=== PATIENT | female | born 1955 | race Caucasian/White ===

== ENCOUNTER 2020-09-22 08:36 | Outpatient (CLI) | payer MEDICARE ==
[2020-09-22] MEDS ORDERED: EPINEPHrine 1 MG/ML AMP ONE (09:15)
[2020-09-22] MEDS ORDERED: Lidocaine 1% PF 10 ML AMP ONE (09:15)
[2020-09-22] MEDS ORDERED: Iopamidol 300 61% 50 ML VIAL FS ONE (09:15)
--- NOTE | 2020-09-22 10:24 | RAD ---
Exam: Right shoulder arthrogram HISTORY: Traumatic change of the left rotator cuff. Exposure: 0.9 minutes, 77.5 mcg/sq m FINDINGS: 3 view music internship radiograph the left shoulder does not demonstrate any definite fracture or dis location. Normal joint space is preserved Successful left shoulder arthrogram. A total of 13 cc of the contrast admixture was administered. TECHNIQUE: Consent obtained to perform a left shoulder arthrogram with fluoroscopic guidance. Left sh oulder was prepped and draped in a sterile fashion. 1% lidocaine, buffered with sodium bicarbonate was used for local anesthesia. Under fluoroscopic guidance, 22-gauge spinal needle was advanced in th e left shoulder joint space. A total of 13 cc of the contrast admixture was administered into the joint space. Patient tolerated the procedure well. No immediate or postprocedure complications. IMPRESSION: Successful left shoulder arthrogram with fluoroscopic guidance.
--- NOTE | 2020-09-22 13:33 | CT ---
POST ARTHROGRAM CT OF LEFT SHOULDER PERFORMED WITH CONTRAST: Date: 09/22/2020 HISTORY: Traumatic tear of left rotator cuff. Shoulder pain. FINDINGS: The visualized lungs are clear of any infiltrates. Calcified granuloma is seen in the left upper lobe . Contrast injected by Dr. Huston with opacification of the joint space. The supra and infraspinatus ten dons both appear intact. I do not appreciate any evidence for any partial tear. No delamination. Cont rast adjacent to the subscapularis muscle and tendon is probable all iatrogenic. No definitive labral abnormalities. Biceps tendon is in normal position within the bicipital groove. IMPRESSION: No evidence of rotator cuff tear. POS: Rosy
== END 2020-09-22 08:37 | disposition home or self-care (01) ==
LOC: RAD 08:36
PROVIDERS: ATTEND Orthopaedic Surgery Hand Surgery
DX: S46.012A Strain of muscle(s) and tendon(s) of the rotator cuff of left shoulder, initial encounter (principal)
CPT/HCPCS: 23350; J0171; J2001; Q9967

== ENCOUNTER 2020-10-27 07:51 | Outpatient (CLI) | payer MEDICARE ==
[2020-10-27 11:30] LABS: Bilirubin Neg (Negative); Blood, Urine 150 (Negative); Clarity Cloudy (Clear); Glucose, Urine (Dipstick) Normal (Negative); Ketone, Urine Negative (Negative); Leukocyte 500 (Negative); Nitrite Positive (Negative); Protein, Urine (Dipstick) 100 mg/dl (Neg-Trace); Specific Gravity, Urine 1.015 (1.002-1.036); Urobilinogen Normal mg/dL (Less than 2)
[2020-10-27 11:34] LABS: #Basophils 0.1 10x3/uL (0.0-0.2); #Eosinphils 0.2 10x3/uL (0.0-0.5); #Monocytes 1.1 10x3/uL (0.0-1.1); #Neutrophils 6.9 10x3/uL (1.5-8.4); %Basophils 0.5 % (0.0-2.0); %Eosinophils 1.5 % (0.0-6.0); %Lymphocytes 22.6 % (18.0-47.0); %Monocytes 10.2 % (0.0-10.0); %Neutrophils 64.6 % (40.0-75.0); Hemoglobin 12.5 g/dL (12.0-16.0); Mean Corpuscular Hemoglobin 26.7 PG (27.0-33.0); Mean Corpuscular Volume 83.4 fl (80.0-100.0); Mean Platelet Volume 11.6 fl (7.4-10.4); Platelet Count 191 10x3/uL (130-400); RBC Distribution Width 14.6 % (11.5-14.5); Red Blood Cell (RBC) Count 4.69 10x6/uL (3.90-5.20); White Blood Cell (WBC) Count 10.7 10x3/uL (4.5-11.0)
[2020-10-27 12:07] LABS: WBC/HPF Greater Than 50 HPF (0-3)
[2020-10-27 12:08] LABS: Bacteria/HPF 2+ HPF (None Seen)
[2020-10-28 06:06] LABS: SARS-CoV-2 MS2 Positive; SARS-CoV-2 N Gene Negative; SARS-CoV-2 S Gene Negative; SARS-CoV-2 by NAA Not Detected (NotDetected); SARS-CoV-2 orf1ab Negative
== END 2020-10-27 07:52 | disposition home or self-care (01) ==
LOC: LABBT 07:51
PROVIDERS: ATTEND Orthopaedic Surgery Hand Surgery
DX: Z01.818 Encounter for other preprocedural examination (principal); M65.332 Trigger finger, left middle finger; Z20.822 Contact with and (suspected) exposure to COVID-19
CPT/HCPCS: 81001; 85025; 93005; U0003; 87635; 93010

== ENCOUNTER 2020-10-29 19:31 | Emergency (ER) | payer MEDICARE ==
[2020-10-29] MEDS ORDERED: Acetaminophen 500 MG TAB ONE (20:07)
[2020-10-29 20:33] LABS: #Eosinphils 0.1 thou/uL (0.0-0.7); #Lymphocytes 1.2 thou/uL (1.20-3.40); #Monocytes 1.4 thou/uL (0.11-0.59); #Neutrophils 10.6 thou/uL (1.40-6.50); %Basophils 0.1 % (0.0-1.0); %Eosinophils 0.4 % (0.0-10.0); %Lymphocytes 8.7 % (21.0-51.0); %Monocytes 10.4 % (0.0-10.0); %Neutrophils 80.3 % (42.0-75.0); Hemoglobin 12.6 g/dL (12.0-16.0); Mean Corpuscular HGB CONC 34.2 g/dL (32.0-36.0); Mean Corpuscular Hemoglobin 27.8 pg (27.0-31.0); Mean Corpuscular Volume 81.3 fL (78.0-98.0); Mean Platelet Volume 9.3 fL (7.4-10.4); Platelet Count 163 thou/uL (130-400); RBC Distribution Width 13.6 % (11.5-14.5); Red Blood Cell (RBC) Count 4.52 mill/uL (4.20-5.40); White Blood Cell (WBC) Count 13.2 thou/uL (4.8-10.8)
--- NOTE | 2020-10-29 20:38 | RAD ---
Portable frontal chest radiograph: 10/29/2020 COMPARISON: None HISTORY: Fever FINDINGS: No pneumothorax or pleural fluid. No focal consolidation or alveolar edema. IMPRESSION: No acute findings.
[2020-10-29 20:54] LABS: ALT (SGPT) 51 U/L (8-55); AST (SGOT) 19 U/L (5-34); Albumin 4.2 g/dL (3.4-4.8); Alkaline Phosphatase 51 U/L (40-110); Anion Gap 14 mmol/L (10-20); BUN (Urea Nitrogen) 14 mg/dL (9.8-20.1); Bilirubin, Total 0.6 mg/dL (0.2-1.2); Calc. Creatinine Clearance 0 mL/min (70-130); Carbon Dioxide 26 mmol/L (23-31); Chloride 98 mmol/L (98-107); Globulin 3.1 g/dL (2.4-3.5); Glucose 189 mg/dL (80-115); Potassium 4.1 mmol/L (3.5-5.1); Protein, Total 7.3 g/dL (6.0-8.3); Sodium 134 mmol/L (136-145)
[2020-10-29 21:32] LABS: Bacteria/HPF 2+ HPF (None Seen); Bilirubin Negative (Negative); Blood, Urine Negative (Negative); Clarity Turbid (Clear); Glucose, Urine (Dipstick) Normal (Negative); Ketone, Urine 40 mg/dL (Negative); Leukocyte 500 Leu/uL (Negative); Nitrite Negative (Negative); Protein, Urine (Dipstick) 30 mg/dL (Neg-Trace); RBC/HPF 0-3 HPF (0-3); Squamous Epithelial 0-3 HPF (0-3); Urobilinogen Normal mg/dL (Less than 2); WBC/HPF Greater than 50 HPF (0-3)
[2020-10-29] MEDS ORDERED: cefTRIAXone\\ROCEPHIN 2 GM VIAL ONE (21:49)
[2020-10-29] MEDS ORDERED: Promethazine HCl 25 MG/ML VIAL ONE (21:49)
== END 2020-10-29 22:05 | disposition home or self-care (01) ==
LOC: ERS 19:31
DX: N39.0 Urinary tract infection, site not specified (principal); E11.9 Type 2 diabetes mellitus without complications; I10 Essential (primary) hypertension; Z79.899 Other long term (current) drug therapy; R30.0 Dysuria
CPT/HCPCS: 36415; 71045; 80053; 81003; 81015; 83605; 85025; 87077; 87086; 87186; J0696; J2550

== ENCOUNTER 2020-11-12 07:23 | Outpatient (CLI) | payer MEDICARE ==
[2020-11-12 12:20] LABS: #Basophils 0.1 10x3/uL (0.0-0.2); #Eosinphils 0.2 10x3/uL (0.0-0.5); #Monocytes 0.7 10x3/uL (0.0-1.1); #Neutrophils 5.2 10x3/uL (1.5-8.4); %Basophils 0.6 % (0.0-2.0); %Eosinophils 2.8 % (0.0-6.0); %Lymphocytes 24.2 % (18.0-47.0); %Monocytes 8.6 % (0.0-10.0); %Neutrophils 63.2 % (40.0-75.0); Hemoglobin 11.5 g/dL (12.0-16.0); Mean Corpuscular HGB CONC 31.6 G/DL (32.0-36.0); Mean Corpuscular Hemoglobin 26.6 PG (27.0-33.0); Mean Corpuscular Volume 84.3 fl (80.0-100.0); Mean Platelet Volume 11.1 fl (7.4-10.4); Platelet Count 217 10x3/uL (130-400); RBC Distribution Width 14.4 % (11.5-14.5); Red Blood Cell (RBC) Count 4.32 10x6/uL (3.90-5.20); White Blood Cell (WBC) Count 8.3 10x3/uL (4.5-11.0)
[2020-11-12 12:32] LABS: Bilirubin Neg (Negative); Blood, Urine Negative (Negative); Clarity Clear (Clear); Glucose, Urine (Dipstick) Normal (Negative); Ketone, Urine Negative (Negative); Leukocyte 100 (Negative); Nitrite Negative (Negative); Protein, Urine (Dipstick) Negative (Neg-Trace); Urobilinogen Normal mg/dL (Less than 2)
[2020-11-12 14:06] LABS: Bacteria/HPF 2+ HPF (None Seen); RBC/HPF 0-3 HPF (0-3); Squamous Epithelial 0-3 HPF (0-3); Transitional Epithelial 0-3 HPF (None Seen)
[2020-11-12 18:28] LABS: SARS-CoV-2 PCR by NAA Not Detected (NotDetected)
== END 2020-11-12 07:24 | disposition home or self-care (01) ==
LOC: LABBT 07:23
PROVIDERS: ATTEND Orthopaedic Surgery Hand Surgery
DX: Z01.818 Encounter for other preprocedural examination (principal); Z20.822 Contact with and (suspected) exposure to COVID-19; M65.332 Trigger finger, left middle finger
CPT/HCPCS: 81001; 85025; 93005; U0003; U0005; 87635; 93010

== ENCOUNTER 2020-11-17 10:02 | Day surgery (SDC) | payer MEDICARE ==
[2020-11-17] MEDS ORDERED: Ondansetron PF 4 MG/2 ML Vial ONE (10:15)
[2020-11-17] MEDS ORDERED: Dexamethasone 20 MG/5 ML VIAL ONE (10:15)
[2020-11-17] MEDS ORDERED: Lidocaine 1% PF 5 ML VIAL ONE (10:15)
[2020-11-17] MEDS ORDERED: PROPOFOL 200 MG/20 ML VIAL ONE (10:15)
[2020-11-17] MEDS ORDERED: Scopolamine 1.5 mg/72 hour Patch ONE (10:59)
[2020-11-17] MEDS ORDERED: Bacitracin Zinc Ointment 30 gm TUBE ONE (12:07)
[2020-11-17] MEDS ORDERED: Betamet Acet/Betamet Na Ph 30 MG/5 ML VIAL ONE (12:07)
[2020-11-17] MEDS ORDERED: Midazolam HCl 2 mg/2 ml Vial ONE (12:14)
[2020-11-17] MEDS ORDERED: Fentanyl 100 MCG/2 ML VIAL ONE (12:14)
[2020-11-17] MEDS ORDERED: Ketorolac Tromethamine 30 MG/ML VIAL ONE (13:44)
--- NOTE | 2020-11-17 23:58 | OP ---
DATE OF PROCEDURE: 11/17/2020 PREOPERATIVE DIAGNOSES: 1. Left middle finger one trigger. 2. Left middle finger blue-domed cyst. POSTOPERATIVE DIAGNOSES: 1. Left middle finger one trigger. 2. Left middle finger blue-domed cyst. FINDINGS: 3.5 mm long blue-domed cyst since with very thick A1 shakir and early degenerative changes consistent with possible cyst formation. PROCEDURE PERFORMED: 1. To left middle finger dorsal palmar PIP joint area removal of excision biopsy, mass, 0.5 to 1.0 cm. 2. A1 shakir release, left middle finger. COMPLICATIONS: None. INJECTABLES: 20 mL of 0.5% Marcaine, 10 given before incision, 10 given after, no epinephrine. INDICATIONS: Failed conservative treatment for both listed above. DESCRIPTION OF PROCEDURE: After successful general endotracheal anesthesia, the limb was prepped and draped. Time-out was done appropriately. All precautions were standardly taken. The patient then had the injection set up with 0.5% Marcaine. Then, we exsanguinated the limb, inflated the tourniquet to 250 mmHg pressure, outlined the incision. A Callum type incision was made over the P1 palmar digital flexion crease/interphalangeal and carried through skin and subcutaneous tissue. Immediately, we saw the blue-domed cyst extruding from the wound. We covered this with moist sponge, then turned attention to the A1 shakir site which was associated with a complete release. We deflated the tourniquet, obtained hemostasis. Closed both incisions after placing Celestone in each and sent the blue-domes cyst to the pathologist using 4-0 nylon interrupted simple pattern. Job ID: [id number]
== END 2020-11-17 15:25 | disposition home or self-care (01) ==
LOC: SDC 10:02
PROVIDERS: ATTEND Orthopaedic Surgery Hand Surgery
PROC: 0JBK0ZZ Excision of Left Hand Subcutaneous Tissue and Fascia, Open Approach (ICD-10-PCS; principal; 2020-11-17)
PROC: 0LN80ZZ Release Left Hand Tendon, Open Approach (ICD-10-PCS; 2020-11-17)
DX: D18.09 Hemangioma of other sites (principal); M65.332 Trigger finger, left middle finger; E11.9 Type 2 diabetes mellitus without complications; Z79.84 Long term (current) use of oral hypoglycemic drugs; Z79.899 Other long term (current) drug therapy; Z88.5 Allergy status to narcotic agent
CPT/HCPCS: 88305; J0690; J0702; J1100; J1885; J2250; J2405; J2704; J3010; J3490

== ENCOUNTER 2021-07-16 11:05 | Outpatient (CLI) | payer MEDICARE | END 2021-07-16 11:06 | disposition home or self-care (01) | LOC: BICMAMMO 11:05 | PROVIDERS: ATTEND Family Medicine | DX: Z12.31 Encounter for screening mammogram for malignant neoplasm of breast (principal) | CPT/HCPCS: 77063; 77067 ==

== ENCOUNTER 2022-03-18 12:31 | Outpatient (CLI) | payer MEDICARE | END 2022-03-18 12:32 | disposition home or self-care (01) | LOC: MRI 12:31 | PROVIDERS: ATTEND Neurological Surgery | DX: M48.062 Spinal stenosis, lumbar region with neurogenic claudication (principal); M47.816 Spondylosis without myelopathy or radiculopathy, lumbar region; M43.16 Spondylolisthesis, lumbar region | CPT/HCPCS: 72110; 72148 ==

== ENCOUNTER 2022-04-26 07:24 | Outpatient (CLI) | payer MEDICARE ==
[2022-04-21 14:31] VITALS: BMI 36.6
[2022-04-26 08:03] VITALS: BP 116/62; TEMP 97.6
[2022-04-26] MEDS ORDERED: Iopamidol-M 200 41% 20 ML VIAL ONE (09:45)
== END 2022-04-26 09:30 | disposition home or self-care (01) ==
LOC: RAD 07:24
PROVIDERS: ATTEND Neurological Surgery
DX: M48.062 Spinal stenosis, lumbar region with neurogenic claudication (principal); M51.27 Other intervertebral disc displacement, lumbosacral region; M47.816 Spondylosis without myelopathy or radiculopathy, lumbar region; M51.86 Other intervertebral disc disorders, lumbar region
CPT/HCPCS: 62304; 72110; 72132; Q9966

== ENCOUNTER 2022-06-21 11:15 | Outpatient (CLI) | payer MEDICARE ==
[2022-06-21 13:38] LABS: #Eosinphils 0.2 10x3/uL (0.0-0.5); #Monocytes 0.6 10x3/uL (0.0-1.1); #Neutrophils 4.5 10x3/uL (1.5-8.4); %Basophils 0.5 % (0.0-2.0); %Eosinophils 2.3 % (0.0-6.0); %Lymphocytes 30.8 % (18.0-47.0); %Neutrophils 57.8 % (40.0-75.0); Hemoglobin 11.8 g/dL (12.0-15.5); Mean Corpuscular HGB CONC 32.2 g/dL (32.0-36.0); Mean Corpuscular Volume 83.8 fl (81.6-98.3); Mean Platelet Volume 11.8 fl (7.4-10.4); Platelet Count 198 10x3/uL (150-450); RBC Distribution Width 14.4 % (11.5-14.5); Red Blood Cell (RBC) Count 4.37 10x6/uL (3.90-5.03); White Blood Cell (WBC) Count 7.8 10x3/uL (3.5-10.5)
== END 2022-06-21 11:16 | disposition home or self-care (01) ==
LOC: LABBT 11:15
PROVIDERS: ATTEND Orthopaedic Surgery Hand Surgery
DX: Z01.812 Encounter for preprocedural laboratory examination (principal); G56.01 Carpal tunnel syndrome, right upper limb; Z20.822 Contact with and (suspected) exposure to COVID-19
CPT/HCPCS: 85025; 87811

== ENCOUNTER 2022-06-24 07:22 | Day surgery (SDC) | payer MEDICARE ==
[2022-06-22 14:03] VITALS: BMI 36.6
[2022-06-24] MEDS ORDERED: Bupivacaine PF 0.5% 30 ML VIAL ONE (08:39)
[2022-06-24] MEDS ORDERED: Betamet Acet/Betamet Na Ph 30 MG/5 ML VIAL ONE (08:39)
[2022-06-24] MEDS ORDERED: Bacitracin Zinc Ointment 30 gm TUBE ONE (08:39)
[2022-06-24] MEDS ORDERED: Neomycin-Polymyxin 1 ML AMP ONE (08:39)
[2022-06-24] MEDS ORDERED: Scopolamine 1.5 mg/72 hour Patch ONE (08:44)
[2022-06-24] MEDS ORDERED: Sodium Chloride 0.9% 100 ML ONE (08:53)
[2022-06-24] MEDS ORDERED: CEFAZOLIN 2 GM VIAL ONE (08:53)
[2022-06-24] MEDS ORDERED: Ondansetron PF 4 MG/2 ML Vial ONE (09:02)
[2022-06-24] MEDS ORDERED: PROPOFOL 200 MG/20 ML VIAL ONE (09:02)
[2022-06-24] MEDS ORDERED: Propofol 1,000 MG/100 ML VIAL IV ONE (09:05)
[2022-06-24] MEDS ORDERED: Ketorolac Tromethamine 30 MG/ML VIAL ONE (09:56)
== END 2022-06-24 11:30 | disposition home or self-care (01) ==
LOC: SDC 07:22
PROVIDERS: ATTEND Orthopaedic Surgery Hand Surgery
PROC: 01N50ZZ Release Median Nerve, Open Approach (ICD-10-PCS; principal; 2022-06-24)
DX: G56.01 Carpal tunnel syndrome, right upper limb (principal); G35 Multiple sclerosis; E11.9 Type 2 diabetes mellitus without complications; E78.00 Pure hypercholesterolemia, unspecified; G89.29 Other chronic pain; Z79.84 Long term (current) use of oral hypoglycemic drugs; Z79.890 Hormone replacement therapy; Z79.899 Other long term (current) drug therapy; Z88.5 Allergy status to narcotic agent
CPT/HCPCS: J0690; J0702; J1885; J2405; J2704; J3490; S0020

== ENCOUNTER 2022-06-29 10:31 | Outpatient (CLI) | payer MEDICARE | END 2022-06-29 10:32 | disposition home or self-care (01) | LOC: BICMAMMO 10:31 | PROVIDERS: ATTEND Family Medicine | DX: N63.23 Unspecified lump in the left breast, lower outer quadrant (principal) | CPT/HCPCS: 76642; 77066; G0279 ==

== ENCOUNTER 2022-09-27 11:26 | Outpatient (CLI) | payer MEDICARE | END 2022-09-27 11:27 | disposition home or self-care (01) | LOC: DTY/OP 11:26 | PROVIDERS: ATTEND Family Medicine | DX: E11.65 Type 2 diabetes mellitus with hyperglycemia (principal) | CPT/HCPCS: 97802 ==

== ENCOUNTER 2023-06-16 08:31 | Outpatient (CLI) | payer MEDICARE ==
[2023-06-16] MEDS ORDERED: Magnevist 469MG/ML 20 ML VIAL ONE ×3 (11:27)
== END 2023-06-16 08:32 | disposition home or self-care (01) ==
LOC: MRI 08:31
PROVIDERS: ATTEND Psychiatry & Neurology Neurology
DX: G35 Multiple sclerosis (principal); M51.34 Other intervertebral disc degeneration, thoracic region; M51.24 Other intervertebral disc displacement, thoracic region; M48.04 Spinal stenosis, thoracic region; M47.894 Other spondylosis, thoracic region; M25.78 Osteophyte, vertebrae; G95.89 Other specified diseases of spinal cord; R90.82 White matter disease, unspecified
CPT/HCPCS: 70553; 72156; 72157; A9579